=== PATIENT | female | born 1990 | race Caucasian/White ===

== ENCOUNTER 2017-03-15 16:27 | Emergency (ER) | payer OTHER ==
[~2017-03-15] VITALS: Ht 167.6 cm; Wt 74.4 kg
--- OUTSIDE RECORDS SUMMARY | 2017-03-15 16:36 | XMS REPORT | Continuity of Care Document ---
Author Author [employer] Organization [employer] Address Unknown Phone Unavailable Care Team Providers Care Shuttle Truck Driver Name Role Phone [employer] Unavailable Unavailable Problems Medications Allergies, Adverse Reactions, Alerts Immunizations Results Vital Signs Encounters Procedures Plan of Care Social History Assessment and Plan Family History Value Date Source Advance Directives Order Name Results Value Date Source
--- OUTSIDE RECORDS SUMMARY | 2017-03-15 16:36 | XMS REPORT ---
Author GEORGIA Malone Organization [employer] Address Unknown Phone Unavailable Care Team Providers Care Hangersmith Name Role Phone GEORGIA DOW CP Unavailable Allergies No Known Allergies Problems Problem Type Condition Code Onset Dates Condition Status Assessment Encounter for immunization Z23 Active Medications No Known Medications Procedures Procedure Coding System Code Date SINGLE IMMUNIZATION ADMIN CPT-4 78881 Jul 22, 2015 FLUARIX QUAD (3 & UP)-GSK-2014 CPT-4 53717 Jul 22, 2015 Results No Known Results Immunizations Vaccine Administration Date FLUARIX QUAD (3 & UP)-GSK-2014Jul 22, 2015 Summary Purpose [employer] Submission
--- OUTSIDE RECORDS SUMMARY | 2017-03-15 16:36 | XMS REPORT ---
Author Author GEORGIA DOW [facility] [employer] Address Unknown Phone Unavailable Care Team Providers Care Steel Manager Name Role Phone GEOR[place] DOW Unavailable Allergies No Known Allergies Problems Problem Type Condition Code Onset Dates Condition Status Assessment Encounter for immunization Z23 Active Medications No Known Medications Procedures Procedure Coding System Code Date SINGLE IMMUNIZATION ADMIN CPT-4 37448 Aug 02, 2016 FLUARIX QUAD P-FREE 3 AND UP .50 2015 CPT-4 80996 Aug 02, 2016 Results No Known Results Immunizations Vaccine Administration Date FLUARIX QUAD P-FREE 3 AND UP .50 2015Aug 02, 2016 Summary Purpose [employer] Submission
[2017-03-15] MEDS ORDERED: TETANUS,DIPTH,PERTUSS P/F (BOOSTRIX) 0.5 ML VIAL IM STA (16:57)
[2017-03-15] MEDS ORDERED: RABIES VACCINE HUMAN DIPL CELL 1 ML/2.5 UNITS SYR IM ONE (17:15)
[2017-03-15] MEDS ORDERED: RABIES IMMUNE GLOBULIN 150 UNIT/ML 10 ML (HYPERRAB) IM ONE (17:15)
--- NOTE | 2017-03-15 17:17 | ED Integumentary General ---
General Chief Complaint: Bite-Animal/Human/Insect Stated Complaint: DOG BITE ON LT LEG Source: patient Exam Limitations: no limitations (THOMAS ALVARADO MD) History of Present Illness Time seen by provider: 17:00 Initial Comments Here with report of dog bite to the area of the posterior leg just distal to the gluteal fold posteriorly. Does not believe that she has a puncture wound but definitely has scrapes to the area of concern. She has bruising also noted to the same area. The dog was dropped off at the person's house that she was at a couple weeks ago. The person at the household has not had problems with the dog since but today the dog bit the patient unprovoked. The dog then later tried to bite a senior c software engineer's Department officer who then shot at the dog. The dog then ran away and they're unable to find the dog. The dog is unknown on rabies vaccination and unknown on previous owners. Search of the area did not turn up the dog. Tetanus is not up-to-date. Timing/Duration: just prior to arrival (approximately 2 hours ago) Severity: moderate Location: extremities Possible Cause: other (dog bite) Associated Symptoms: change in skin texture, edema (THOMAS ALVARADO MD) Allergies and Home Medications Allergies Coded Allergies: No Known Drug Allergies (Unverified , 03/15/17) Home Medications Amoxicillin/Potassium Clav 1 Each Tablet, 1 EACH PO BID, #14 Ref 0 Prescribed by: ISAMAR AHUJA on 03/15/17 1723 Hydrocodone/Acetaminophen 1 Each Tablet, 1 EACH PO Q4H PRN for PAIN-MODERATE, # 20 Ref 0 Prescribed by: ISAMAR AHUJA on 03/15/17 1827 Constitutional: see HPI, No chills, No fever Respiratory: no symptoms reported Cardiovascular: no symptoms reported Gastrointestinal: no symptoms reported Musculoskeletal: see HPI, No joint pain, muscle pain Skin: see HPI, change in color, lesions Psychiatric/Neurological: No Symptoms Reported (THOMAS ALVARADO MD) Past Bcnrjpq-Fkvtxd-Xuyswv Hx Patient Social History Alcohol Use: Occasionally Uses Recreational Drug Use: No Smoking Status: Never a Smoker Recent Foreign Travel: No Contact w/Someone Who Travel: No (THOMAS ALVARADO MD) Surgeries HX Surgeries: No (THOMAS ALVARADO MD) Respiratory Hx Respiratory Disorders: No (THOMAS ALVARADO MD) Cardiovascular Hx Cardiac Disorders: No (THOMAS ALVARADO MD) Neurological Hx Neurological Disorders: No (THOMAS ALVARADO MD) Genitourinary Hx Genitourinary Disorders: No (THOMAS ALVARADO MD) Gastrointestinal Hx Gastrointestinal Disorders: No (THOMAS ALVARADO MD) Musculoskeletal Hx Musculoskeletal Disorders: No (THOMAS ALVARADO MD) Endocrine Hx Endocrine Disorders: No (THOMAS ALVARADO MD) HEENT HX ENT Disorders: No (THOMAS ALVARADO MD) Reviewed Nursing Assessment Reviewed/Agree w Nursing PMH: Yes (THOMAS ALVARADO MD) Family Medical History Significant Family History: No Pertinent Family Hx (THOMAS ALVARADO MD) Physical Exam Vital Signs Vital Sign - Last 12Hours 03/15/17 16:47 Temp 98.0 Pulse 86 Resp 18 B/P (MAP) 132/99 Pulse Ox 100 O2 Delivery Room Air (ISAMAR AHUJA) Vital Signs Capillary Refill : (THOMAS ALVARADO MD) General Appearance: WD/WN, no apparent distress Cardiovascular: regular rate, rhythm, no murmur Respiratory: lungs clear, normal breath sounds Gastrointestinal: non tender, soft Extremities: normal range of motion, swelling, other (2 x 10 cm area of bruising and induration to the posterior upper leg at the gluteal fold. 3 small abrasions on the opposite outside and of the bruising are noted consistent with area of dog bite.) Skin: warm/dry, ecchymosis (THOMAS ALVARADO MD) Progress/Results/Core Measures Results/Orders My Orders Orders - ISAMAR AHUJA Morphine Injection (Morphine Injection (03/15/17 18:17) (ISAMAR AHUJA) Medications Given in ED Current Medications Medications Dose Ordered Sig/Benita Route Start Time Stop Time Status Last Admin Dose Admin Rabies Vaccine Human Diploid Cell 1 ml ONCE ONCE IM 03/15/17 17:15 03/15/17 17:18 DC 03/15/17 17:15 1 ML (ISAMAR AHUJA) Vital Signs/I&O Vital Sign - Last 12Hours 03/15/17 03/15/17 16:47 19:01 Temp 98.0 98.0 Pulse 86 86 Resp 18 18 B/P (MAP) 132/99 Pulse Ox 100 100 O2 Delivery Room Air (ISAMAR AHUJA) Progress Note : Progress Note Seen and evaluated. Tetanus updated. Patient and family spoke with [facility]'s Department who is unable to find the dog. The person at the house where the dog was staying is unable to find the dog. Due to concerns of rabies and unable to monitor find the dog, rabies vaccine will be initiated. Patient will need vaccination series as well as rabies immune globulin at 20 units per kilogram culminating in a dose of approximately 1500 units injected. Injection and discharged by NOAM Henriquez. Patient did receive hydrocodone 7.5 one tab by mouth as well as ibuprofen 800 mg prior to injection procedure. (THOAMS ALVARADO MD) Departure Communication Progress Notes 10 ml rabies immune globulin injected IM surrounding the bite wound on the left posterior proximal thigh. bandages applied. blood loss minimal. patient tolerated the procedure well. [facility] for [facility] vaccine on , 03/21, and 03/28. (ISAMAR AHUJA) Impression Impression: Primary Impression: Dog bite Qualified Codes: W54.0XXA - Bitten by dog, initial encounter Disposition: HOME, SELF-CARE Condition: Improved Departure-Patient Inst. Decision time for Depature: 17:22 (ISAMAR AHUJA) Referrals: NO,LOCAL PHYSICIAN (PCP/Family) Primary Care Physician Patient Instructions: Animal Bites (DC), Rabies (DC) Add. Discharge Instructions: All discharge instructions reviewed with patient and/or family. Voiced understanding. Medications as instructed. Tylenol Extra Strength over-the- counter as directed for pain. Ibuprofen 800 mg by mouth every 8 hours as needed for pain. Shower with antibacterial soap. Apply triple antibiotic ointment twice daily for 3 days and cover with a bandage. Follow-up with your family practitioner for recheck if needed. Return to [facility] for rabies vaccination on Day 3 (03/17/17), Day 7 (03/21/17), and Day 14 (03/28/17) . Return to the emergency department for worsened pain, redness, fever, drainage, or any other concerns. Scripts Hydrocodone/Acetaminophen (Hydrocodon-Acetaminoph 7.5-325) 1 Each Tablet 1 EACH PO Q4H Y for PAIN-MODERATE, #20 TAB 0 Refills Prov: ISAMAR AHUJA 03/15/17 Amoxicillin/Potassium Clav (Augmentin 875-125 Tablet) 1 Each Tablet 1 EACH PO BID, #14 TAB 0 Refills Prov: ISAMAR AHUJA 03/15/17 THOMAS ALVARADO MD Mar 15, 2017 17:17 ISAMAR AHUJA Mar 15, 2017 17:24
[2017-03-15] MEDS ORDERED: AMOX-358 PO (17:23)
[2017-03-15] MEDS ORDERED: HYDROcodone/APAP 7.5 MG/325 MG (LORTAB, LORCET PLUS) TABLET PO STA (17:31)
[2017-03-15] MEDS ORDERED: IBUPROFEN 800 MG (MOTRIN) TAB PO STA (17:31)
[2017-03-15] MEDS ORDERED: morphine INJ 10 MG/ML 1ML (SYR OR VIAL) IM STA (18:17)
[2017-03-15] MEDS ORDERED: HYDR-3816 PO (18:27)
[2017-03-15 19:19] VITALS: BP 120/79
== END 2017-03-15 19:30 | disposition home or self-care (01) ==
LOC: ER 16:32
DX: S81.852A Open bite, left lower leg, initial encounter (principal); Z29.14 Encounter for prophylactic rabies immune globulin; W54.0XXA Bitten by dog, initial encounter; Y92.019 Unspecified place in single-family (private) house as the place of occurrence of the external cause
CPT/HCPCS: 84703; 90471; 90675; 90715; 96372; 99283

== ENCOUNTER 2017-03-28 10:25 | Outpatient (RCR) | payer OTHER ==
[2017-03-17 13:05] VITALS: BP 120/87
[2017-03-21 10:27] VITALS: BP 124/82
[~2017-03-28] VITALS: Ht 167.6 cm; Wt 74.4 kg
[~2017-03-28 10:25] MED LIST: AMOX-358 PO; HYDR-3816 PO; RABIES VACCINE HUMAN DIPL CELL 1 ML/2.5 UNITS SYR INJ ONE; RABIES VACCINE HUMAN DIPL CELL 1 ML/2.5 UNITS SYR ONE
[2017-03-28 10:34] VITALS: BP 118/76
== END 2017-06-15 | disposition home or self-care (01) ==
LOC: SDC 10:25
PROVIDERS: ATTEND Emergency Medicine
DX: Z23 Encounter for immunization (principal)
CPT/HCPCS: 90675; 96372

== ENCOUNTER → 2017-05-17 | Outpatient (CLI) | payer OTHER ==
[~2017-05-17] MED LIST changes: -RABIES VACCINE HUMAN DIPL CELL 1 ML/2.5 UNITS SYR INJ ONE; -RABIES VACCINE HUMAN DIPL CELL 1 ML/2.5 UNITS SYR ONE
--- NOTE | 2017-05-17 18:06 | Diagnostic Imaging Report ---
EXAMINATION: Pelvic ultrasound. INDICATION: Secondary oligomenorrhea. COMPARISON: There are no previous studies available for comparison. FINDINGS: The uterus is nongravid and not enlarged measuring 6.4 x 3.8 x 2.6 cm. The endometrial lining measures 7 mm (normal 5 mm or less). This finding is nonspecific, however. Correlation with the patient's menstrual cycle would be recommended. There is no focal mass involving the uterus to suggest a fibroid. Both ovaries were identified. There is blood flow to each ovary, and there is no sign of torsion. There are multiple follicles associated with each ovary. There is no solid pelvic mass or free fluid collection identified. IMPRESSION: 1. There is no evidence for an acute pelvic abnormality. 2. The endometrial lining is slightly thickened, but this finding is nonspecific. Dictated by: Dictated on workstation # [id number]
== END ==
LOC: RAD 09:37
PROVIDERS: ATTEND Obstetrics & Gynecology
DX: N91.4 Secondary oligomenorrhea (principal)
CPT/HCPCS: 76830; 76856

== ENCOUNTER 2017-09-24 11:43 | Emergency (ER) | payer OTHER ==
[~2017-09-24] VITALS: Ht 162.6 cm; Wt 74.8 kg
--- OUTSIDE RECORDS SUMMARY | 2017-09-24 11:48 | XMS REPORT | Continuity of Care Document ---
Author Author [employer] Organization [employer] Address Unknown Phone Unavailable Care Team Providers Care Litharge Mill Operator Name Role Phone [employer] Unavailable Unavailable Problems Medications Allergies, Adverse Reactions, Alerts Immunizations Results Vital Signs Encounters Procedures Plan of Care Social History Assessment and Plan Family History Advance Directives Functional Status
--- NOTE | 2017-09-24 11:57 | ED GU-Female ---
General Chief Complaint: -Female Stated Complaint: BLEEDING 12 WKS Source: patient Exam Limitations: no limitations History of Present Illness Time seen by provider: 11:56 Initial Comments To ER with reports of vaginal bleeding and being 12 weeks 3 days . . She follows with Dr. Cordero and has had an ultrasound for this . She denies any cramping sensation denies any fevers or chills. She does report some urinary frequency last night but she attributes this to drinking more water than usual yesterday. She states that the bleeding began last night as a small amount of blood in the toilet and on the toilet paper after urinating. Same thing occurred again this morning with a small clot on the toilet paper after urinating. Timing/Duration: constant Severity/Quality: moderate Radiation: none Activities at Onset: none Associated Symptoms: No dysuria, No lower back pain, No nausea/vomiting Allergies and Home Medications Allergies Coded Allergies: No Known Drug Allergies (Unverified , 03/15/17) Home Medications Amoxicillin/Potassium Clav 1 Each Tablet, 1 EACH PO BID, #14 Ref 0 Prescribed by: ISAMAR AHUJA on 03/15/17 1723 Hydrocodone/Acetaminophen 1 Each Tablet, 1 EACH PO Q4H PRN for PAIN-MODERATE, # 20 Ref 0 Prescribed by: ISAMAR AHUJA on 03/15/17 1827 Constitutional: see HPI EENTM: see HPI Respiratory: no symptoms reported Cardiovascular: no symptoms reported Genitourinary: no symptoms reported Musculoskeletal: see HPI Skin: no symptoms reported Psychiatric/Neurological: No Symptoms Reported Past Xfbovpo-Ygysqv-Bjmsri Hx Patient Social History Recent Foreign Travel: No Contact w/Someone Who Travel: No Recent Hopitalizations: No Immunizations Up To Date Tetanus Booster (TDap): Unknown Surgeries History of Surgeries: No Respiratory History of Respiratory Disorde: No Cardiovascular History of Cardiac Disorders: No Neurological History of Neurological Disord: No Genitourinary History of Genitourinary Disor: No Gastrointestinal History of Gastrointestinal Di: No Musculoskeletal History of Musculoskeletal Dis: No Endocrine History of Endocrine Disorders: No Integumentary History of Skin or Integumenta: No Family Medical History Significant Family History: No Pertinent Family Hx Physical Exam Vital Signs Vital Sign - Last 12Hours 09/24/17 11:55 Temp 98.0 Pulse 89 Resp 16 B/P (MAP) 135/84 (101) Pulse Ox 100 O2 Delivery Room Air Capillary Refill : General Appearance: WD/WN, no apparent distress HEENT: PERRL/EOMI, normal ENT inspection Neck: non-tender, full range of motion Respiratory: no respiratory distress, no accessory muscle use Gastrointestinal: non tender, soft Pelvic: other (pelvic exam done with Jennifer KOVACS at the bedside. No vaginal polyps or lacerations or bleeding lesions. cervix is closed. small amount of dark brown blood at the cervix, no active bleeding. ) Extremities: normal range of motion, non-tender Neurologic/Psychiatric: alert, normal mood/affect, oriented x 3 Skin: normal color, warm/dry Progress/Results/Core Measures Suspected Sepsis SIRS Temperature: Pulse: Respiratory Rate: Laboratory Tests 09/24/17 12:15: White Blood Count 8.1 Blood Pressure / Mean: Laboratory Tests 09/24/17 12:15: Platelet Count 229 Results/Orders Lab Results Laboratory Tests Test 09/24/17 12:10 09/24/17 12:15 Range/Units Urine Color YELLOW Urine Clarity CLEAR Urine pH 7 5-9 Urine Specific [place] 1.015 L 1.016-1.022 Urine Protein NEGATIVE NEGATIVE Urine Glucose (UA) NEGATIVE NEGATIVE Urine Ketones NEGATIVE NEGATIVE Urine Nitrite NEGATIVE NEGATIVE Urine Bilirubin NEGATIVE NEGATIVE Urine Urobilinogen NORMAL NORMAL MG/DL Urine Leukocyte Esterase NEGATIVE NEGATIVE Urine RBC (Auto) 4+ H NEGATIVE Urine RBC NONE /HPF Urine WBC NONE /HPF Urine Squamous Epithelial Cells 0-2 /HPF Urine Crystals NONE /LPF Urine Bacteria TRACE /HPF Urine Casts NONE /LPF Urine Mucus NEGATIVE /LPF Urine Culture Indicated NO White Blood Count 8.1 4.3-11.0 10^3/uL Red Blood Count 3.98 L 4.35-5.85 10^6/uL Hemoglobin 12.2 11.5-16.0 G/DL Hematocrit 35 35-52 % Mean Corpuscular Volume 88 80-99 FL Mean Corpuscular Hemoglobin 31 25-34 PG Mean Corpuscular Hemoglobin Concent 35 32-36 G/DL Red Cell Distribution Width 13.8 10.0-14.5 % Platelet Count 229 130-400 10^3/uL Mean Platelet Volume 9.6 7.4-10.4 FL Neutrophils (%) (Auto) 69 42-75 % Lymphocytes (%) (Auto) 24 12-44 % Monocytes (%) (Auto) 6 0-12 % Eosinophils (%) (Auto) 1 0-10 % Basophils (%) (Auto) 0 0-10 % Neutrophils # (Auto) 5.6 1.8-7.8 X 10^3 Lymphocytes # (Auto) 2.0 1.0-4.0 X 10^3 Monocytes # (Auto) 0.5 0.0-1.0 X 10^3 Eosinophils # (Auto) 0.1 0.0-0.3 10^3/uL Basophils # (Auto) 0.0 0.0-0.1 10^3/uL Human Chorionic Gonadotropin, Quant [id number] H <5 MIU/ML My Orders Orders - CARLOS A NELSON APRN Cbc With Automated Diff (09/24/17 11:46) Ua Culture If Indicated (09/24/17 11:46) Abo Rh Type (09/24/17 11:46) Urine Bedside (09/24/17 11:46) Hcg,Quantitative (09/24/17 12:02) Us Ob Single Fetus<14 [id number] (09/24/17 11:46) Vital Signs/I&O Vital Sign - Last 12Hours 09/24/17 11:55 Temp 98.0 Pulse 89 Resp 16 B/P (MAP) 135/84 (101) Pulse Ox 100 O2 Delivery Room Air Capillary Refill : Departure Impression Impression: Primary Impression: Vaginal bleeding affecting early Disposition: 01 HOME, SELF-CARE Condition: Stable Departure-Patient Inst. Decision time for Depature: 13:42 Referrals: LUIS DANIEL CORDERO DO (PCP/Family) Primary Care Physician Patient Instructions: NO INSTRUCTIONS GIVEN, Threatened Miscarriage Add. Discharge Instructions: 1. Call Dr Cordero to let her know of your symptoms. 2. Return to ER for any concerns 3. All discharge instructions reviewed with patient and/or family. Voiced understanding. Copy Copies To 1: LUIS DANIEL CORDERO PETER J APRN Sep 24, 2017 11:57
[2017-09-24 12:25] LABS: BILIRUBIN,URINE NEGATIVE (NEGATIVE); CLARITY,URINE CLEAR; COLOR,URINE YELLOW; GLUCOSE, URINE (UA) NEGATIVE (NEGATIVE); KETONES,URINE NEGATIVE (NEGATIVE); LEUKOCYTE ESTERASE ,URINE NEGATIVE (NEGATIVE); NITRITE,URINE NEGATIVE (NEGATIVE); PH,URINE 7 (5-9); PROTEIN,URINE NEGATIVE (NEGATIVE); UROBILINOGEN,URINE NORMAL (NORMAL)
[2017-09-24 12:28] LABS: BASOPHILS % (AUTO) 0 % (0-10); EOSINOPHILS # (AUTO) 0.1 10^3/uL (0.0-0.3); EOSINOPHILS % (AUTO) 1 % (0-10); HEMATOCRIT 35 % (35-52); HEMOGLOBIN 12.2 G/DL (11.5-16.0); LYMPHOCYTES % (AUTO) 24 % (12-44); MEAN CORPUSCULAR HEMOGLOBIN 31 PG (25-34); MEAN CORPUSCULAR HGB CONC 35 G/DL (32-36); MEAN CORPUSCULAR VOLUME 88 FL (80-99); MEAN PLATELET VOLUME 9.6 FL (7.4-10.4); MONOCYTES # (AUTO) 0.5 X 10^3 (0.0-1.0); MONOCYTES % (AUTO) 6 % (0-12); NEUTROPHILS # (AUTO) 5.6 X 10^3 (1.8-7.8); NEUTROPHILS % (AUTO) 69 % (42-75); PLATELET COUNT 229 10^3/uL (130-400); RED BLOOD COUNT 3.98 10^6/uL (4.35-5.85); RED CELL DISTRIBUTION WIDTH 13.8 % (10.0-14.5); WHITE BLOOD COUNT 8.1 10^3/uL (4.3-11.0)
[2017-09-24 12:47] LABS: BACTERIA,URINE TRACE /HPF
[2017-09-24 12:48] LABS: SQUAMOUS EPITHELIAL CELL,UR 0-2 /HPF
--- NOTE | 2017-09-24 13:29 | Diagnostic Imaging Report ---
PROCEDURE: US OB SINGLE FETUS <14 WKS. TECHNIQUE: Multiple real-time grayscale images were obtained over the gravid uterus in various projections. INDICATION: Bleeding. FINDINGS: There is a single living intrauterine in a variable presentation. The biometry correlates with gestational age of 12 weeks 4 days. Placenta is anterior. There is no previa. Heart rate is 169 beats per minute and regular. There is no evidence of subchorionic hemorrhage or abruption. Neither ovary was visualized. There are no adnexal masses. There is no free pelvic fluid. There appears to be a normal volume of amniotic fluid. IMPRESSION: Single living intrauterine with sonographically estimated gestational age of 12 weeks 4 days and estimated date of confinement of 04/04/2018 No evidence of subchorionic hemorrhage or abruption. Dictated by: Dictated on workstation # [id number]
[2017-09-24 14:19] VITALS: BP 135/84
== END 2017-09-24 13:59 | disposition home or self-care (01) ==
LOC: EDUNIT# 11:43 → ER 11:44
DX: O20.9 Hemorrhage in early pregnancy, unspecified (principal); Z3A.12 12 weeks gestation of pregnancy
CPT/HCPCS: 36415; 76801; 81000; 84702; 84703; 85025; 86900; 86901; 87070; 99282

== ENCOUNTER → 2017-11-17 | Outpatient (CLI) | payer OTHER ==
[~2017-11-17] MED LIST changes: +HYDR-34 PO; -HYDR-3816 PO
--- NOTE | 2017-11-17 13:48 | Diagnostic Imaging Report ---
INDICATION: survey. TECHNIQUE: Multiple Real-time grayscale images were obtained over the gravid uterus. COMPARISON: 09/24/2017. FINDINGS: There is a single living intrauterine in cephalic presentation. The placenta is anterior. The placenta is 2.6 cm from the cervix at this time. There is a normal volume of amniotic fluid. The anatomical survey is unremarkable apart from limited visualization of the spine. The biometry correlates with a gestational age of 21 weeks 1 day. The heart rate is 152 BPM and regular. IMPRESSION: Single living intrauterine with a sonographically estimated gestational age of 21 weeks 1 day and an estimated date of confinement of March 29, 2018. Limited visualization of the spine; otherwise, unremarkable survey. The placenta is 2.6 cm from the internal os at this time. Biometrical measurements are as follows: Biparietal 4.85 cm, age 20 weeks 5 days. Head circumference 18.77 cm, age 21 weeks 1 days. Abdominal circumference 15.53 cm, age 20 weeks 5 days. Femur length 3.71 cm, age 21 weeks 6 days. Sonographic estimate age: 21 weeks 1 days. Sonographic estimated date of delivery: 03-29-18. Estimated Weight: 405 gm (+/- 59 gm). LMP percentile: 96%. heart rate: 152 beats per minute. number: 1 of 1. Dictated by: Dictated on workstation # [id number]
== END ==
LOC: RAD 11:50
PROVIDERS: ATTEND Obstetrics & Gynecology
DX: Z36.89 Encounter for other specified antenatal screening (principal); Z3A.21 21 weeks gestation of pregnancy
CPT/HCPCS: 76805

== ENCOUNTER → 2018-01-02 | Outpatient (CLI) | payer OTHER ==
[~2018-01-02] MED LIST changes: +ACHD5005 PO; +Benzocaine/Menthol TP; +DOCU100C37 PO; +FERR240T9 PO; +FERR325T18 PO; +IBUP-844 PO; +PREN-142 PO
--- NOTE | 2018-01-02 14:49 | Diagnostic Imaging Report ---
INDICATION: Followup placenta and spine. TECHNIQUE: Multiple real-time grayscale images were obtained over the gravid uterus. COMPARISON: 11/17/2017. FINDINGS: There is a single live fetus in a cephalic presentation. The placenta is anterior. The placenta is no longer low lying in position. The amniotic fluid volume is normal. spine is within normal limits. heart rate was recorded at 134 beats per minute. IMPRESSION: Limited OB ultrasound demonstrating normal-appearing spine. The placenta is anterior and no longer low lying. Dictated by: Dictated on workstation # [id number]
== END ==
LOC: RAD 14:22
PROVIDERS: ATTEND Obstetrics & Gynecology
DX: O44.42 Low lying placenta NOS or without hemorrhage, second trimester (principal); Z3A.00 Weeks of gestation of pregnancy not specified
CPT/HCPCS: 76816

== ENCOUNTER → 2018-02-16 | Outpatient (CLI) | payer OTHER ==
[~2018-02-16] MED LIST changes: -ACHD5005 PO; -Benzocaine/Menthol TP; -DOCU100C37 PO; -FERR240T9 PO; -FERR325T18 PO; -IBUP-844 PO; -PREN-142 PO
--- NOTE | 2018-02-16 12:39 | Diagnostic Imaging Report ---
INDICATION: Gestational diabetes. Study is performed to evaluate amniotic fluid index and growth as well as biophysical profile. TECHNIQUE: Multiple real-time grayscale images were obtained over the gravid uterus. COMPARISON: 01/02/2018. FINDINGS: There is a single live fetus in cephalic presentation. The placenta is anterior. The amniotic fluid volume is normal with amniotic fluid index of 18 cm. heart rate was recorded at 138 beats per minute. Biophysical profile was performed. There is a normal score of 8 out of 8. Biometrical measurements are as follows: Biparietal 8.90 cm, age 36 weeks 1 days. Head circumference 32.89 cm, age 37 weeks 3 days. Abdominal circumference 29.95 cm, age 34 weeks 0 days. Femur length 6.82 cm, age 35 weeks 1 days. Sonographic estimate age: 35 weeks 5 days. Sonographic estimated date of delivery: 03/18/18. Estimated Weight: 2517 gm (+/- 367 gm). LMP percentile: 90%. heart rate: 138 beats per minute. number: 1 of 1. IMPRESSION: Single live IUP approximately 35 to 36 weeks gestational age (plus or -3 weeks) CTs. No complicating features are identified. Dictated by: Dictated on workstation # [id number]
== END ==
LOC: RAD 09:57
PROVIDERS: ATTEND Obstetrics & Gynecology
DX: O24.410 Gestational diabetes mellitus in pregnancy, diet controlled (principal); Z3A.35 35 weeks gestation of pregnancy
CPT/HCPCS: 76805; 76819

== ENCOUNTER → 2018-03-01 | Outpatient (CLI) | payer OTHER ==
--- NOTE | 2018-03-02 09:34 | Diagnostic Imaging Report ---
INDICATION: Gestational diabetes. TECHNIQUE: Multiple real-time grayscale images were obtained over the gravid uterus. COMPARISON: 02/16/2018. FINDINGS: There is a single live fetus in a cephalic presentation. The placenta is anterior. The amniotic fluid index is 15.8 cm. heart rate was recorded at 139 beats per minute. Biophysical profile was performed. Score is normal at 8/8. Biometrical measurements are as follows: Biparietal 9.31 cm, age 38 weeks 0 days. Head circumference 33.72 cm, age 38 weeks 5 days. Abdominal circumference 32.61 cm, age 36 weeks 4 days. Femur length 7.08 cm, age 36 weeks 3 days. Sonographic estimate age: 37 weeks 3 days. Sonographic estimated date of delivery: 03/19/18. Estimated Weight: 3048 gm (+/- 445 gm). LMP percentile: 93%. heart rate: 139 beats per minute. number: 1 of 1. IMPRESSION: Single live IUP measuring approximately 37 weeks 3 days gestational age which is approximately 2-3 weeks large when compared with ultrasound from 01/02/2018. Biophysical profile score is normal at 8/8. Dictated by: Dictated on workstation # [id number]
== END ==
LOC: RAD 11:54
PROVIDERS: ATTEND Obstetrics & Gynecology
DX: Z53.8 Procedure and treatment not carried out for other reasons (principal); O24.410 Gestational diabetes mellitus in pregnancy, diet controlled; Z3A.00 Weeks of gestation of pregnancy not specified
CPT/HCPCS: 76805; 76819

== ENCOUNTER 2018-03-13 10:30 | Inpatient (IN) | payer OTHER ==
[~2018-03-13] VITALS: Ht 162.6 cm; Wt 74.9 kg
[2018-03-13 10:20] VITALS: BP 130/87
[2018-03-13] MEDS ORDERED: NS IV 1000 ML 1,000 ML IV SCH (13:30)
--- NOTE | 2018-03-13 14:20 | Progress Note-Standard ---
LUIS DANIEL CORDERO DO Mar 13, 2018 14:19
[2018-03-13 14:30] VITALS: BP 140/88
[2018-03-13] MEDS: LACTATED RINGERS 1,000 ML IV SCH (15:58)
[2018-03-13 16:05] LABS: BASOPHILS % (AUTO) 0 % (0-10); EOSINOPHILS % (AUTO) 1 % (0-10); HEMATOCRIT 35 % (35-52); HEMOGLOBIN 12.4 G/DL (11.5-16.0); LYMPHOCYTES % (AUTO) 23 % (12-44); MEAN CORPUSCULAR HEMOGLOBIN 32 PG (25-34); MEAN CORPUSCULAR HGB CONC 35 G/DL (32-36); MEAN CORPUSCULAR VOLUME 91 FL (80-99); MEAN PLATELET VOLUME 10.8 FL (7.4-10.4); MONOCYTES % (AUTO) 6 % (0-12); NEUTROPHILS % (AUTO) 70 % (42-75); PLATELET COUNT 176 10^3/uL (130-400); RED BLOOD COUNT 3.91 10^6/uL (4.35-5.85); RED CELL DISTRIBUTION WIDTH 16.6 % (10.0-14.5); WHITE BLOOD COUNT 7.2 10^3/uL (4.3-11.0)
[2018-03-13 16:06] LABS: LYMPHOCYTES # (AUTO) 1.7 X 10^3 (1.0-4.0); MONOCYTES # (AUTO) 0.4 X 10^3 (0.0-1.0)
[2018-03-13 16:28] LABS: ALANINE AMINOTRANSFERASE 12 U/L (0-55); ALBUMIN 3.6 GM/DL (3.2-4.5); ALKALINE PHOSPHATASE 152 U/L (40-136); BILIRUBIN,TOTAL 0.5 MG/DL (0.1-1.0); BUN/CREATININE RATIO 11; CARBON DIOXIDE 18 MMOL/L (21-32); CHLORIDE 112 MMOL/L (98-107); CREATININE SERUM 0.64 MG/DL (0.60-1.30); GFR ESTIMATED > 60; GLUCOSE 71 MG/DL (70-105); POTASSIUM 3.7 MMOL/L (3.6-5.0); SODIUM 142 MMOL/L (135-145); TOTAL PROTEIN 6.7 GM/DL (6.4-8.2); URIC ACID 5.9 MG/DL (2.6-7.2)
[2018-03-13 16:47] LABS: URINE CREATININE FOR RATIO 10 MG/DL (30-125); URINE PROTEIN FOR RATIO ONLY < 6 MG/DL (6-12)
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
[2018-03-13] MEDS ORDERED: AMPICILLIN INJECTION 2,000 MG in NS (IVPB) 50 ML IV SCH (17:22)
[2018-03-13] MEDS ORDERED: ZOLPIDEM 5 MG (AMBIEN) TAB PO PRN (17:30)
[2018-03-13] MEDS ORDERED: morphine INJ 10 MG/ML 1ML (SYR OR VIAL) IVP PRN (17:30)
[2018-03-13] MEDS ORDERED: MINERAL OIL CONCENTRATE 99.9% 15 ML UDC TOP PRN (17:30)
[2018-03-13] MEDS ORDERED: BETAMETHASONE ACE/NA PHOS 6 MG/ML (CELESTONE SOLUSPAN) IM SCH (18:30)
[2018-03-13 18:40] VITALS: BP 118/65
[2018-03-13 21:00] VITALS: BP 120/69
[2018-03-13] MEDS ORDERED: PREN-142 PO (22:17)
[2018-03-13] MEDS ORDERED: FERR240T9 PO (22:18)
[2018-03-13] MEDS: AMPICILLIN INJECTION 1,000 MG in NS (IVPB) 50 ML IV SCH (22:43)
[2018-03-14] VITALS (49 sets, daily range): BP systolic 103–180; BP diastolic 53–90
[2018-03-14] MEDS: LACTATED RINGERS 1,000 ML IV SCH ×2 (01:13→09:45)
[2018-03-14] MEDS: AMPICILLIN INJECTION 1,000 MG in NS (IVPB) 50 ML IV SCH ×4 (02:44→15:12)
[2018-03-14] MEDS ORDERED: SUFENTA 0.6MCG/ML BUPIVA 0.125 100 ML ONE (09:26)
[2018-03-14] MEDS ORDERED: BUTORPHANOL INJ 2 MG/ML (STADOL) VIAL IV PRN (09:45)
[2018-03-14] MEDS ORDERED: fentaNYL INJECTION 100 MCG/2 ML AMP ONE (09:53)
[2018-03-14] MEDS ORDERED: LACTATED RINGERS 1,000 ML IV ONE (10:27)
[2018-03-14] MEDS ORDERED: ONDANSETRON 4 MG/2 ML (SDV) Z0FRAN IV PRN (10:30)
[2018-03-14] MEDS ORDERED: NALOXONE 0.4 MG/ML 1 ML (NARCAN) VIAL IV PRN ×2 (10:30)
[2018-03-14] MEDS ORDERED: diphenhydrAMINE 50 MG/ML INJ (BENADRYL) IV PRN (10:30)
[2018-03-14] MEDS ORDERED: EPIDURAL (SUFENTA 0.6MCG/ML BUPIVA 0.125%) 100 ML BAG EPI PRN (10:30)
[2018-03-14] MEDS ORDERED: METOCLOPRAMIDE INJ 10 MG/2 ML (REGLAN) IV PRN (10:30)
[2018-03-14] MEDS ORDERED: OXYTOCIN/NORMAL SALINE 500 ML IV SCH ×2 (11:08→17:59)
[2018-03-14] MEDS ORDERED: OXYTOCIN/NORMAL SALINE 500 ML IV ONE (11:10)
[2018-03-14] MEDS ORDERED: LIDOCAINE/EPI 2% 1:200,00 (XYLOCAINE) 10 ML VIAL ONE ×2 (17:21→17:44)
[2018-03-14] MEDS ORDERED: BENZOCAINE/MENTHOL (DERMOPLAST) 56 ML CAN TP ONE (17:55)
[2018-03-14] MEDS ORDERED: MEASLES,MUMPS,RUBELLA 1 EA INJ SQ ONE (18:00)
[2018-03-14] MEDS ORDERED: HYDROcodone/APAP 5 MG/325 MG (LORTAB) TAB PO PRN (18:00)
[2018-03-14] MEDS ORDERED: DIBUCAINE (NUPERCAINAL) 1% OINT 30 GM TOP PRN (18:00)
[2018-03-14] MEDS ORDERED: TETANUS,DIPTH,PERTUSS P/F (BOOSTRIX) 0.5 ML VIAL IM ONE (18:00)
[2018-03-14] MEDS ORDERED: BENZOCAINE/MENTHOL (DERMOPLAST) 56 ML CAN TP PRN (18:00)
--- NOTE | 2018-03-14 18:08 | Progress Note-Standard ---
Standard Progress Note Progress Notes/Assess & Plan Date Seen by Provider: Mar 13, 2018 Time Seen by Provider: 11:15 LUIS DANIEL CORDERO DO Mar 14, 2018 18:07
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
[2018-03-14] MEDS: WITCH HAZEL(TUCKS) 40 EA JAR TOP PRN (20:50)
[2018-03-14] MEDS: IBUPROFEN 600 MG (MOTRIN) TAB PO SCH (20:51)
[2018-03-14] MEDS: DOCUSATE SODIUM 100 MG (COLACE) CAP PO SCH (20:51)
[2018-03-15 00:09] VITALS: BP 116/70
[2018-03-15] MEDS: CATHETER FLUSH 10 ML SYR IV SCH ×2 (00:18→06:22)
[2018-03-15 03:30] VITALS: BP 97/54
[2018-03-15] MEDS: IBUPROFEN 600 MG (MOTRIN) TAB PO SCH ×2 (03:30→09:16)
[2018-03-15] MEDS ORDERED: PRENATAL VITAMIN 1 EA TAB PO SCH (07:00)
[2018-03-15] MEDS ORDERED: FERROUS SULF 325 MG (IRON) TAB PO SCH (07:00)
[2018-03-15 07:16] LABS: BASOPHILS % (AUTO) 0 % (0-10); EOSINOPHILS % (AUTO) 0 % (0-10); HEMATOCRIT 29 % (35-52); HEMOGLOBIN 9.8 G/DL (11.5-16.0); LYMPHOCYTES # (AUTO) 1.8 X 10^3 (1.0-4.0); LYMPHOCYTES % (AUTO) 17 % (12-44); MEAN CORPUSCULAR HEMOGLOBIN 32 PG (25-34); MEAN CORPUSCULAR HGB CONC 34 G/DL (32-36); MEAN CORPUSCULAR VOLUME 93 FL (80-99); MEAN PLATELET VOLUME 10.8 FL (7.4-10.4); MONOCYTES # (AUTO) 0.7 X 10^3 (0.0-1.0); MONOCYTES % (AUTO) 6 % (0-12); NEUTROPHILS # (AUTO) 7.9 X 10^3 (1.8-7.8); NEUTROPHILS % (AUTO) 77 % (42-75); PLATELET COUNT 155 10^3/uL (130-400); RED BLOOD COUNT 3.08 10^6/uL (4.35-5.85); RED CELL DISTRIBUTION WIDTH 16.5 % (10.0-14.5); WHITE BLOOD COUNT 10.3 10^3/uL (4.3-11.0)
--- NOTE | 2018-03-15 07:33 | Discharge Inst-Women's Service ---
Discharge Inst-Women's Serv Depart Medication/Instructions New, Converted or Re-Newed RX: RX on Chart Consults/Follow Up Additional Follow Up: Yes Orders/Referrals Dr. Lindsey in 6 weeks Activity Activity: Activity as Tolerated Driving Instructions: No Driving for 1 Week NO SMOKING: NO SMOKING Nothing Inside Vagina: No Douching, No [place], No Tampons Diet Discharge Diet: No Restrictions Symptoms to Report to : Bleeding Excessive, Pain Increased, Fever Over 101 Degrees F, Vaginal Bleeding Increase, Questions/Concerns For Any Problems or Questions: Contact Your Physician Skin/Wound Care Bathing Instructions: Shower (or sitz baths x 2 weeks) RACHEL BRANDON DO Mar 15, 2018 07:32
[2018-03-15] MEDS ORDERED: ACHD5005 PO (07:34)
[2018-03-15] MEDS ORDERED: FERR325T18 PO (07:34)
[2018-03-15] MEDS ORDERED: DOCU100C37 PO (07:34)
[2018-03-15] MEDS ORDERED: Benzocaine/Menthol TP (07:34)
[2018-03-15] MEDS ORDERED: IBUP-844 PO (07:34)
--- NOTE | 2018-03-15 07:35 | Postpartum Progress Note ---
Note Note Day # 1 Subjective: Patient is without complaints. Ambulating, voiding. Tolerating a regular diet without nausea or vomiting. Normal lochia. Pain is well controlled with oral pain medications. being transferred to NICU Objective: Vital Sign - Last 24 Hours 03/14/18 03/14/18 03/14/18 03/14/18 08:15 09:20 09:40 09:45 Temp 97.5 Pulse 82 88 114 100 Resp 18 18 18 18 B/P (MAP) 126/61 (82) 118/68 (85) 133/73 (93) 129/72 (91) Pulse Ox 99 98 O2 Delivery Room Air Room Air Room Air Room Air 03/14/18 03/14/18 03/14/18 03/14/18 09:50 09:55 10:00 10:05 Pulse 100 100 100 102 Resp 18 18 18 18 B/P (MAP) 132/75 (94) 130/72 (91) 125/66 (85) 125/68 (87) Pulse Ox 100 100 100 100 O2 Delivery Room Air Room Air Room Air Room Air 03/14/18 03/14/18 03/14/18 03/14/18 10:10 10:20 10:30 10:45 Pulse 96 95 100 87 Resp 18 18 18 18 B/P (MAP) 119/60 (79) 120/80 (93) 125/66 (85) 103/66 (78) Pulse Ox 98 98 100 99 O2 Delivery Room Air Room Air Room Air Room Air 03/14/18 03/14/18 03/14/18 03/14/18 11:00 11:15 11:45 12:00 Pulse 92 84 75 80 Resp 18 18 18 18 B/P (MAP) 103/75 (84) 109/69 (82) 110/69 (83) 110/70 (83) Pulse Ox 100 100 100 100 O2 Delivery Room Air Room Air Room Air Room Air 03/14/18 03/14/18 03/14/18 03/14/18 12:15 12:30 12:45 13:00 Pulse 80 82 84 84 Resp 18 18 18 18 B/P (MAP) 112/73 (86) 118/74 (89) 131/76 (94) 121/71 (88) Pulse Ox 100 100 100 100 O2 Delivery Room Air Room Air Room Air Room Air 03/14/18 03/14/18 03/14/18 03/14/18 13:15 13:30 13:45 14:00 Pulse 81 85 76 78 Resp 18 18 18 18 B/P (MAP) 125/70 (88) 132/75 (94) 123/69 (87) 121/66 (84) Pulse Ox 100 99 98 97 O2 Delivery Room Air Room Air Room Air Room Air 03/14/18 03/14/18 03/14/18 03/14/18 14:15 14:30 14:45 15:00 Temp 98.2 Pulse 84 81 82 83 Resp 18 18 18 18 B/P (MAP) 127/67 (87) 121/67 (85) 123/66 (85) 135/67 (89) Pulse Ox 97 99 100 100 O2 Delivery Room Air Room Air Room Air Room Air 03/14/18 03/14/18 03/14/18 03/14/18 15:15 15:30 15:45 16:00 Pulse 88 82 89 89 Resp 18 18 B/P (MAP) 136/72 (93) 125/66 (85) 118/59 (78) 126/64 (84) Pulse Ox 100 98 97 99 O2 Delivery Room Air Room Air Room Air Room Air 03/14/18 03/14/18 03/14/18 03/14/18 16:15 16:30 16:45 17:00 Pulse 87 90 86 103 Resp 18 18 18 18 B/P (MAP) 128/65 (86) 128/71 (90) 138/68 (91) 140/66 (90) Pulse Ox 99 100 100 100 O2 Delivery Room Air Room Air Room Air Room Air 03/14/18 03/14/18 03/14/18 03/14/18 17:15 17:30 17:45 18:00 Temp 98.8 Pulse 131 107 107 112 Resp 18 20 20 18 B/P (MAP) 180/90 (120) 125/60 (81) 110/53 (72) 121/58 (79) O2 Delivery Room Air Room Air Room Air Room Air 03/14/18 03/14/18 03/14/18 03/14/18 18:15 18:30 18:45 19:00 Pulse 106 101 101 102 Resp 18 18 18 18 B/P (MAP) 124/58 (80) 126/65 (85) 126/61 (82) 126/61 (82) O2 Delivery Room Air Room Air Room Air Room Air 03/14/18 03/14/18 03/14/18 03/14/18 19:18 19:33 19:48 20:30 Temp 98.1 98.4 Pulse 134 110 104 102 Resp 18 18 18 18 B/P (MAP) 143/65 (91) 141/62 (88) 138/64 (88) 122/71 (88) Pulse Ox 98 O2 Delivery Room Air Room Air Room Air Room Air 03/15/18 03/15/18 00:09 03:30 Temp 97.8 97.6 Pulse 104 85 Resp 18 18 B/P (MAP) 116/70 (85) 97/54 (68) Pulse Ox 98 O2 Delivery Room Air Room Air Physical Exam: General - Alert and oriented, no apparent distress Abdomen - Soft, appropriately tender to palpation, non-distended, fundus firm at umbilicus Extremities - no edema, negative Gloria's bilaterally Assessment: PPD 1 NVD Acute blood loss anemia Plan: Routine care. Encourage breast feeding. Encourage ambulation. Ferrous sulfate supplementation. Plan for discharge [today with infant Vitals - Labs Vital Signs - I&O Vital Signs Date Time Temp Pulse Resp B/P (MAP) Pulse Ox O2 Delivery O2 Flow Rate FiO2 03/15/18 03:30 97.6 85 18 97/54 (68) 98 Room Air 03/15/18 00:09 97.8 104 18 116/70 (85) Room Air 03/14/18 20:30 98.4 102 18 122/71 (88) 98 Room Air 03/14/18 19:48 98.1 104 18 138/64 (88) Room Air 03/14/18 19:33 110 18 141/62 (88) Room Air 03/14/18 19:18 134 18 143/65 (91) Room Air 03/14/18 19:00 102 18 126/61 (82) Room Air 03/14/18 18:45 101 18 126/61 (82) Room Air 03/14/18 18:30 101 18 126/65 (85) Room Air 03/14/18 18:15 106 18 124/58 (80) Room Air 03/14/18 18:00 112 18 121/58 (79) Room Air 03/14/18 17:45 107 20 110/53 (72) Room Air 03/14/18 17:30 98.8 107 20 125/60 (81) Room Air 03/14/18 17:15 131 18 180/90 (120) Room Air 03/14/18 17:00 103 18 140/66 (90) 100 Room Air 03/14/18 16:45 86 18 138/68 (91) 100 Room Air 03/14/18 16:30 90 18 128/71 (90) 100 Room Air 03/14/18 16:15 87 18 128/65 (86) 99 Room Air 03/14/18 16:00 89 18 126/64 (84) 99 Room Air 03/14/18 15:45 89 18 118/59 (78) 97 Room Air 03/14/18 15:30 82 18 125/66 (85) 98 Room Air 03/14/18 15:15 88 18 136/72 (93) 100 Room Air 03/14/18 15:00 83 18 135/67 (89) 100 Room Air 03/14/18 14:45 98.2 82 18 123/66 (85) 100 Room Air 03/14/18 14:30 81 18 121/67 (85) 99 Room Air 03/14/18 14:15 84 18 127/67 (87) 97 Room Air 03/14/18 14:00 78 18 121/66 (84) 97 Room Air 03/14/18 13:45 76 18 123/69 (87) 98 Room Air 03/14/18 13:30 85 18 132/75 (94) 99 Room Air 03/14/18 13:15 81 18 125/70 (88) 100 Room Air 03/14/18 13:00 84 18 121/71 (88) 100 Room Air 03/14/18 12:45 84 18 131/76 (94) 100 Room Air 03/14/18 12:30 82 18 118/74 (89) 100 Room Air 03/14/18 12:15 80 18 112/73 (86) 100 Room Air 03/14/18 12:00 80 18 110/70 (83) 100 Room Air 03/14/18 11:45 75 18 110/69 (83) 100 Room Air 03/14/18 11:15 84 18 109/69 (82) 100 Room Air 03/14/18 11:00 92 18 103/75 (84) 100 Room Air 03/14/18 10:45 87 18 103/66 (78) 99 Room Air 03/14/18 10:30 100 18 125/66 (85) 100 Room Air 03/14/18 10:20 95 18 120/80 (93) 98 Room Air 03/14/18 10:10 96 18 119/60 (79) 98 Room Air 03/14/18 10:05 102 18 125/68 (87) 100 Room Air 03/14/18 10:00 100 18 125/66 (85) 100 Room Air 03/14/18 09:55 100 18 130/72 (91) 100 Room Air 03/14/18 09:50 100 18 132/75 (94) 100 Room Air 03/14/18 09:45 100 18 129/72 (91) 98 Room Air 03/14/18 09:40 114 18 133/73 (93) 99 Room Air 03/14/18 09:20 88 18 118/68 (85) Room Air 03/14/18 08:15 97.5 82 18 126/61 (82) Room Air Labs Laboratory Tests 03/15/18 05:57: Glucometer 97 03/15/18 06:52: White Blood Count 10.3, Red Blood Count 3.08L, Hemoglobin 9.8#L, Hematocrit 29L , Mean Corpuscular Volume 93, Mean Corpuscular Hemoglobin 32, Mean Corpuscular Hemoglobin Concent 34, Red Cell Distribution Width 16.5H, Platelet Count 155, Mean Platelet Volume 10.8H, Neutrophils (%) (Auto) 77H, Lymphocytes (%) (Auto) 17, Monocytes (%) (Auto) 6, Eosinophils (%) (Auto) 0, Basophils (%) (Auto) 0, Neutrophils # (Auto) 7.9H, Lymphocytes # (Auto) 1.8, Monocytes # (Auto) 0.7, Eosinophils # (Auto) 0.0, Basophils # (Auto) 0.0 Microbiology 03/13/18 Group B Streptococcus Culture - Preliminary, Resulted See Comments RACHEL BRANDON DO Mar 15, 2018 07:35
[2018-03-15 08:00] VITALS: BP 109/66
--- NOTE | 2018-03-15 08:06 | Anesthesia-Regional Post-Op ---
Regional Patient Condition Mental Status: Alert, Oriented x3 Circulation: Same as Pre-Op Headache: Absent Sensation: Full Recovery Motor Block: Absent Post Op Complications Complications None Follow Up Care/Instructions Patient Instructions None needed. Anesthesia/Patient Condition Patient is doing well, no complaints, stable vital signs, no apparent adverse anesthesia problems. No complications reported per nursing. ANISA SALINAS CRNA Mar 15, 2018 08:06
[2018-03-15] MEDS: DOCUSATE SODIUM 100 MG (COLACE) CAP PO SCH (08:10)
[2018-03-15] MEDS: WITCH HAZEL(TUCKS) 40 EA JAR TOP PRN (09:22)
== END 2018-03-15 09:55 | disposition home or self-care (01) | DRG 775 ==
LOC: WSo 10:30 → LDRP 10:31 → WSo 18:29 → LDRP 18:42
PROVIDERS: ADMIT Obstetrics & Gynecology; ATTEND Obstetrics & Gynecology
PROC: 0KQM0ZZ Repair Perineum Muscle, Open Approach (ICD-10-PCS; principal; 2018-03-14)
PROC: 10E0XZZ Delivery of Products of Conception, External Approach (ICD-10-PCS; principal; 2018-03-14)
DX: O60.14X0 Preterm labor third trimester with preterm delivery third trimester, not applicable or unspecified (principal); O90.81 Anemia of the puerperium; D62 Acute posthemorrhagic anemia; O70.1 Second degree perineal laceration during delivery; O24.429 Gestational diabetes mellitus in childbirth, unspecified control; Z3A.36 36 weeks gestation of pregnancy; Z04.1 Encounter for examination and observation following transport accident; Z37.0 Single live birth; V40.6XXA Car passenger injured in collision with pedestrian or animal in traffic accident, initial encounter
CPT/HCPCS: 36415; 80053; 82570; 82962; 83615; 84156; 84550; 85025; 86850; 86900; 86901; 87081; 99212

== ENCOUNTER → 2020-03-05 | Outpatient (CLI) | payer OTHER ==
[~2020-03-05] MED LIST changes: +ACHD5005 PO; +Benzocaine/Menthol TP; +DOCU100C37 PO; +FERR240T15 PO; +FERR325T18 PO; +IBUP-844 PO; +PREN-142 PO
--- NOTE | 2020-03-05 13:29 | Diagnostic Imaging Report ---
INDICATION: survey. TECHNIQUE: Multiple real-time grayscale images were obtained over the gravid uterus. COMPARISON: None. FINDINGS: There is a single live fetus in transverse presentation, head to maternal right. heart rate was recorded 150 bpm. Placenta is posterior. There does appear to be a complete placenta previa at this time. Amniotic fluid index is 13.5 cm. Cervical length is approximately 7.9 cm. kidneys, bladder and stomach are unremarkable. brain is unremarkable. There is a four-chambered heart. There is a three-vessel cord with normal insertion. spine is unremarkable. Biometrical measurements are as follows: Biparietal 4.63 cm, age 20 weeks 0 days. Head circumference 17.50 cm, age 20 weeks 1 days. Abdominal circumference 15.46 cm, age 20 weeks 5 days. Femur length 3.50 cm, age 21 weeks 1 days. Sonographic estimate age: 20 weeks 4 days. Sonographic estimated date of delivery: 07/19/2020. Estimated Weight: 372 gm (+/- 54 gm). LMP percentile: 84%. heart rate: 150 beats per minute. number: 1 of 1. IMPRESSION: Single live IUP 20 weeks 4 days gestational age. Estimated date of confinement sonographically is 07/19/2020. survey is unremarkable. Note is made of a complete placenta previa at this time. Dictated by: Dictated on workstation # [id number]
== END ==
LOC: RAD 11:33
PROVIDERS: ATTEND Obstetrics & Gynecology
DX: O44.02 Complete placenta previa NOS or without hemorrhage, second trimester (principal); Z3A.20 20 weeks gestation of pregnancy
CPT/HCPCS: 76805

== ENCOUNTER → 2020-04-08 | Outpatient (CLI) | payer OTHER ==
--- NOTE | 2020-04-08 14:05 | Diagnostic Imaging Report ---
INDICATION: Placenta previa, followup. TECHNIQUE: Multiple real-time grayscale images were obtained over the gravid uterus. COMPARISON: 03/05/2020. FINDINGS: There is a single live fetus in a transverse presentation. heart rate was recorded 142 bpm. Placenta is posterior. Placenta is no longer in a previa position. The tip of the placenta is approximately 3.1 cm from the internal cervical os. Amniotic fluid volume is normal. IMPRESSION: No evidence of placenta previa. Dictated by: Dictated on workstation # [id number]
== END ==
LOC: RAD 11:41
PROVIDERS: ATTEND Obstetrics & Gynecology
DX: O44.02 Complete placenta previa NOS or without hemorrhage, second trimester (principal)
CPT/HCPCS: 76816

== ENCOUNTER 2020-07-19 14:42 | Inpatient (IN) | payer OTHER ==
[2020-07-19] VITALS (40 sets, daily range): BP systolic 115–142; BP diastolic 55–100
[~2020-07-19] VITALS: Ht 162 cm; Wt 92.4 kg
--- NOTE | 2020-07-19 14:48 | NUR ---
MARTY WRAY presented to unit via amb from ED, accompanied by spouse, with c/o leaking fluid and possible LABOR. MARTY WRAY weighed, gowned, voided, and to bed. EFHM and TOCO applied, VS taken. MARTY WRAY oriented to bed controls, call light, TV, heat, and A/C controls.
--- NOTE | 2020-07-19 15:05 | NUR ---
AMNIO SWAB POSITIVE. SVE BY PRATEEK WHITE RN. 5.5-6 CM/ 50%/-2 BALLOTABLE. FOREBAG NOTED. APPEARS VERTEX.
[2020-07-19] MEDS ORDERED: D5 LR IV SOLUTION 1,000 ML IV ONE (15:14)
--- NOTE | 2020-07-19 15:15 | NUR ---
DR. BRANDON NOTIFIED OF PT'S ARRIVAL, COMPLAINT, + AMNIO SWAB AND CERVICAL EXAM. WILL SEE IF DR. CORDERO IS AVAILABLE R/T BEING HER PT.
[2020-07-19] MEDS ORDERED: D5 LR IV SOLUTION 1,000 ML IV SCH (15:17)
[2020-07-19] MEDS ORDERED: LACTATED RINGERS 1,000 ML IV SCH (15:30)
[2020-07-19 15:39] LABS: BASOPHILS % (AUTO) 0 % (0-10); EOSINOPHILS % (AUTO) 0 % (0-10); HEMATOCRIT 30 % (35-52); HEMOGLOBIN 9.7 g/dL (11.5-16.0); LYMPHOCYTES # (AUTO) 1.7 10^3/uL (1.0-4.0); LYMPHOCYTES % (AUTO) 19 % (12-44); MEAN CORPUSCULAR HEMOGLOBIN 28 pg (25-34); MEAN CORPUSCULAR HGB CONC 32 g/dL (32-36); MEAN CORPUSCULAR VOLUME 86 fL (80-99); MEAN PLATELET VOLUME 11.1 fL (9.0-12.2); MONOCYTES # (AUTO) 0.6 10^3/uL (0.0-1.0); MONOCYTES % (AUTO) 6 % (0-12); NEUTROPHILS # (AUTO) 6.5 10^3/uL (1.8-7.8); NEUTROPHILS % (AUTO) 72 % (42-75); PLATELET COUNT 189 10^3/uL (130-400)
--- NOTE | 2020-07-19 15:40 | NUR ---
DR. CORDERO CALLED. WILL ASSUME CARE OF HER PT. UPDATE GIVEN.
[2020-07-19] MEDS ORDERED: LACTATED RINGERS 1,000 ML IV ONE ×2 (15:43)
[2020-07-19] MEDS ORDERED: ONDANSETRON 4 MG/2 ML (SDV) Z0FRAN IV PRN (15:45)
[2020-07-19] MEDS ORDERED: EPIDURAL (fentaNYL 2 MCG/ML BUPIVA 0.125%)100 ML BAG EPI PRN (15:45)
[2020-07-19] MEDS ORDERED: NALOXONE 0.4 MG/ML 1 ML (NARCAN) VIAL IV PRN (15:45)
[2020-07-19] MEDS ORDERED: fentaNYL INJECTION 100 MCG/2 ML AMP INJ ONE (15:45)
[2020-07-19] MEDS ORDERED: LIDOCAINE PF 2% 5 ML (XYLOCAINE) VIAL ONE (15:49)
[2020-07-19] MEDS ORDERED: BUPIVACAINE 0.25% 30 ML (SENSORCAINE) VIAL ONE (15:49)
[2020-07-19] MEDS ORDERED: fentaNYL INJECTION 100 MCG/2 ML AMP ONE (15:50)
--- NOTE | 2020-07-19 17:02 | NUR ---
DR. CORDERO CALLED TO CHECK ON PT STATUS. UPDATE GIVEN REGARDING 7 CM/60%/-2 AND CONTRACTION PATTERN AND VARIABLES. RECHECK PT IN 1 HOUR.
[2020-07-19] MEDS ORDERED: MINERAL OIL CONCENTRATE 99.9% 15 ML UDC TOP PRN (18:00)
[2020-07-19] MEDS ORDERED: OXYTOCIN PRE-MIX DRIP 500 ML IV SCH (18:23)
--- NOTE | 2020-07-19 19:52 | Labor Progress Note ---
ANANYA AQUINO MD 07/19/20 195: Labor Progress Note Labor Progress Note Time Seen by Provider: 19:50 Subjective: Pt denies complaints. Starting to feel contractions a little more, but epidural is working well. Objective: (Can we insert 24 hour vitals here?) Cervical exam: 8+/100%/-1 Consistency: soft Position: anterior Presentation: cephalic heart tones: 135 beats per minute, moderate variability, reactive, no decels Tocometer: 4 ctx/10 minutes Assessment/Plan: Marycarmen Osullivan is a (29 /Para / ,Gestational Age (wks)39 here for contractions/labor. CEFM/TOCO Continue pitocin Anesthesia: epidural Anticipate vaginal delivery next check in 30-60 minutes d/w Dr. César Aquino MD [facility] Resident Physician, PGY-2 Vitals - Labs Vital Signs - I&O Vital Signs Date Time Temp Pulse Resp B/P (MAP) Pulse Ox O2 Delivery O2 Flow Rate FiO2 07/19/20 17:35 71 18 121/73 (89) 100 07/19/20 17:20 74 18 117/67 (84) 100 07/19/20 17:10 36.7 101 18 99 Room Air 07/19/20 17:02 78 18 116/66 (83) 100 07/19/20 16:56 80 18 118/55 (76) 100 07/19/20 16:51 75 18 120/76 (91) 99 07/19/20 16:48 80 18 121/65 (83) 99 07/19/20 16:45 83 18 134/72 (92) 99 07/19/20 16:41 80 18 125/73 (90) 100 07/19/20 16:35 84 18 127/78 (94) 100 07/19/20 16:32 80 18 125/72 (89) 100 07/19/20 16:30 81 18 127/71 (89) 100 07/19/20 16:26 80 18 119/65 (83) 98 07/19/20 16:23 37.0 80 18 121/64 (83) 98 07/19/20 16:20 83 18 125/69 (87) 99 07/19/20 16:17 82 18 129/63 (85) 98 07/19/20 16:14 93 18 133/63 (86) 99 07/19/20 16:10 86 18 125/79 (94) 99 07/19/20 16:08 100 18 120/74 (89) 99 07/19/20 15:55 82 18 128/79 (95) 07/19/20 15:40 88 18 127/72 (90) 07/19/20 14:52 36.7 107 18 129/72 (91) 99 Labs Laboratory Tests 07/19/20 15:20: White Blood Count 9.0, Red Blood Count 3.47L, Hemoglobin 9.7L, Hematocrit 30L, Mean Corpuscular Volume 86, Mean Corpuscular Hemoglobin 28, Mean Corpuscular Hemoglobin Concent 32, Red Cell Distribution Width 14.9H, Platelet Count 189, Me an Platelet Volume 11.1, Immature Granulocyte % (Auto) 2, Neutrophils (%) (Auto) 72, Lymphocytes (%) (Auto) 19, Monocytes (%) (Auto) 6, Eosinophils (%) (Auto) 0, Basophils (%) (Auto) 0, Neutrophils # (Auto) 6.5, Lymphocytes # (Auto) 1.7, Monocytes # (Auto) 0.6, Eosinophils # (Auto) 0.0, Basophils # (Auto) 0.0, Immature Granulocyte # (Auto) 0.2H LUIS DANIEL CORDERO DO 07/19/20 2233: Labor Progress Note Labor Progress Note Time Seen by Provider: 20:00 I have seen and examined the patient and agree with assessment. ANANYA AQUINO MD Jul 19, 2020 19:52 LUIS DANIEL CORDERO DO Jul 19, 2020 22:33
[2020-07-19] MEDS ORDERED: MISOPROSTOL 200 MCG (CYTOTEC) TABLET ONE ×2 (21:56)
[2020-07-19] MEDS ORDERED: LIDOCAINE/EPI 2% 1:200,00 (XYLOCAINE) 10 ML VIAL ONE ×2 (22:00→22:07)
[2020-07-19] MEDS ORDERED: CATHETER FLUSH 10 ML SYR IV SCH (22:00)
[2020-07-19] MEDS ORDERED: MISOPROSTOL 200 MCG (CYTOTEC) TABLET PR ONE ×3 (22:13→22:30)
[2020-07-19] MEDS ORDERED: LIDOCAINE/EPI 2% 1:200,00 (XYLOCAINE) 10 ML VIAL IJ ONE (22:18)
[2020-07-19] MEDS ORDERED: TETANUS,DIPTH,PERTUSS P/F (BOOSTRIX) 0.5 ML VIAL IM ONE (22:30)
[2020-07-19] MEDS ORDERED: DIBUCAINE (NUPERCAINAL) 1% OINT 30 GM TOP PRN (22:30)
[2020-07-19] MEDS ORDERED: BENZOCAINE/MENTHOL (DERMOPLAST) 60 ML CAN TP PRN (22:30)
[2020-07-19] MEDS ORDERED: WITCH HAZEL(TUCKS) 40 EA JAR TOP PRN (22:30)
[2020-07-19] MEDS ORDERED: MEASLES,MUMPS,RUBELLA 1 EA INJ SQ ONE (22:30)
--- NOTE | 2020-07-19 22:38 | OB Labor & Delivery Record ---
ANANYA AQUINO MD 07/19/20 2238: Vag Delivery Note Vag Delivery Note Date of Delivery: 07/19/20 Preoperative Diagnosis: Marycarmen Osullivan is a (29 /Para 2 /1 , at Gestational Age (wks)39 who presented with loss of fluid and contractions Postoperative Diagnosis: Same Surgeon: Dr. Alyson Cordero Skimmer Scoop Operator: ANANYA AQUINO Anesthesia: epidural Delivery Type: spontaneous vaginal delivery Findings: Viable male infant, apgars 8/9, weight 4310 Lacerations: second degree perineal w/ partial capsulotomy Intact placenta with 3 vessel cord. No nuchal cord, body cord or shoulder dystocia Cytotec 800 mcg placed for hemorrhage prophylaxis Estimated Blood Loss: 500 ml Complications: laceration as above, PPH s/p Cytotec Condition: Stable Description of Procedure: The patient is a 29 year old female who presented with loss of fluid and contractions. She was admitted and informed consent was obtained. Her labor course was augmented with Pitocin and was otherwise unremarkable. She progressed to complete dilatation and began to push. She was then set up for delivery. The infant's head was delivered atraumatically in the GABBY position. The shoulders and remainder of the infant's body were then delivered without difficulty. Upon delivery, the nares were bulb suctioned. The cord was doubly clamped and cut and the was handed off to the pediatric staff. An intact placenta with 3-vessel cord delivered via Steven. Vigorous fundal massage was performed and the fundus was found to be firm. IV oxytocin and rectal Cytotec was given. Examination of the vagina and perineum revealed a 2nd degree laceration with partial capsulotomy, which was repaired in the usual fashion with 3-0 vicryl suture. Following the repair, sponge, instrument and needle counts were correct. Mom and baby were both in stable condition in the labor suite. Dr. Cordero was present for the entire procedure Jose Antonio Aquino MD [facility] Resident Physician, PGY-2 Vitals - Labs Vital Signs - I&O Vital Signs Date Time Temp Pulse Resp B/P (MAP) Pulse Ox O2 Delivery O2 Flow Rate FiO2 07/19/20 22:19 36.78601 07/19/20 18:50 73 18 121/70 (87) 100 Room Air 07/19/20 18:35 72 18 116/73 (87) 100 Room Air 07/19/20 18:20 75 18 124/73 (90) 100 Room Air 07/19/20 18:05 75 18 131/80 (97) 100 Room Air 07/19/20 17:50 36.5 69 18 127/77 (94) 100 Room Air 07/19/20 17:35 71 18 121/73 (89) 100 07/19/20 17:20 74 18 117/67 (84) 100 07/19/20 17:10 36.7 101 18 99 Room Air 07/19/20 17:02 78 18 116/66 (83) 100 07/19/20 16:56 80 18 118/55 (76) 100 07/19/20 16:51 75 18 120/76 (91) 99 07/19/20 16:48 80 18 121/65 (83) 99 07/19/20 16:45 83 18 134/72 (92) 99 07/19/20 16:41 80 18 125/73 (90) 100 07/19/20 16:35 84 18 127/78 (94) 100 07/19/20 16:32 80 18 125/72 (89) 100 07/19/20 16:30 81 18 127/71 (89) 100 07/19/20 16:26 80 18 119/65 (83) 98 07/19/20 16:23 37.0 80 18 121/64 (83) 98 07/19/20 16:20 83 18 125/69 (87) 99 07/19/20 16:17 82 18 129/63 (85) 98 07/19/20 16:14 93 18 133/63 (86) 99 07/19/20 16:10 86 18 125/79 (94) 99 07/19/20 16:08 100 18 120/74 (89) 99 07/19/20 15:55 82 18 128/79 (95) 07/19/20 15:40 88 18 127/72 (90) 07/19/20 14:52 36.7 107 18 129/72 (91) 99 Labs Laboratory Tests 07/19/20 15:20: White Blood Count 9.0, Red Blood Count 3.47L, Hemoglobin 9.7L, Hematocrit 30L, Mean Corpuscular Volume 86, Mean Corpuscular Hemoglobin 28, Mean Corpuscular Hemoglobin Concent 32, Red Cell Distribution Width 14.9H, Platelet Count 189, Mean Platelet Volume 11.1, Immature Granulocyte % (Auto) 2, Neutrophils (%) (Auto) 72, Lymphocytes (%) (Auto) 19, Monocytes (%) (Auto) 6, Eosinophils (%) (Auto) 0, Basophils (%) (Auto) 0, Neutrophils # (Auto) 6.5, Lymphocytes # (Auto) 1.7, Monocytes # (Auto) 0.6, Eosinophils # (Auto) 0.0, Basophils # (Auto) 0.0, Immature Granulocyte # (Auto) 0.2H ALYSON CORDERO DO 07/20/20 1139: Vag Delivery Note Vag Delivery Note There was a mild shoulder dystocia. This was resolved in less than 30 seconds with Rosa and delivery of the anterior shoulder. Also, there was a 2nd degree laceration with partial capsulotomy that I repaired in standard fashion. There was no rectal mucosa tear. Her IV came out with delivery, so IV pitocin was not infused. She was given 800 mcg per rectum misoprostol and did not require additional medications. Shoulder Dystocia Note Shoulder Dystocia HOB in lowered position: Yes Positional Maneuvers Rosa See RN note for times. Rotational Maneuvers Bacon screw (rotation of the baby to deliver the anterior shoulder) ANANYA AQUINO MD Jul 19, 2020 22:38 ALYSON CORDERO DO Jul 20, 2020 11:39
--- NOTE | 2020-07-19 22:40 | NUR ---
PT SITTING UP IN BED. MINIMAL ASSIST WITH GETTING LATCHED TO BREASTFEED. GOOD LATCH NOTED.
[2020-07-19] MEDS: IBUPROFEN 600 MG (MOTRIN) TAB PO SCH (23:06)
--- NOTE | 2020-07-19 23:35 | NUR ---
INFANT AGAIN AT THIS TIME.
[2020-07-20 00:15] VITALS: BP 115/68
--- NOTE | 2020-07-20 00:30 | NUR ---
EPIDURAL CATH REMOVED AT THIS TIME WITH TIP INTACT. PT TRANSFERRED TO W/C WITH STANDBY ASSIST. TO BATHROOM. VOIDED AND PERICARE COMPLETED. PT TRANSFERRED TO POST ROOM AT THIS TIME, IN STABLE CONDITION.
[2020-07-20 01:30] VITALS: BP 120/72
[2020-07-20] MEDS ORDERED: DOCUSATE SODIUM 100 MG (COLACE) CAP PO ONE (01:30)
--- NOTE | 2020-07-20 01:30 | NUR ---
VSS. ASSISTED WITH GETTING TO LATCH. OXYCODONE AND COLACE ADMINISTERED PER REQUEST.
[2020-07-20] MEDS: DOCUSATE SODIUM 100 MG (COLACE) CAP PO SCH ×3 (01:35→20:05)
--- NOTE | 2020-07-20 05:40 | NUR ---
LAB HAS FINISHED DRAWING AM LABS. PT ASSISTED UP TO BATHROOM AND VOIDED WITHOUT DIFFICULTY. PERICARE COMPLETED. ABIODUN SHUKLA.
[2020-07-20 05:51] LABS: BASOPHILS % (AUTO) 0 % (0-10); EOSINOPHILS % (AUTO) 0 % (0-10); HEMATOCRIT 24 % (35-52); HEMOGLOBIN 7.7 g/dL (11.5-16.0); LYMPHOCYTES # (AUTO) 2.1 10^3/uL (1.0-4.0); LYMPHOCYTES % (AUTO) 16 % (12-44); MEAN CORPUSCULAR HEMOGLOBIN 28 pg (25-34); MEAN CORPUSCULAR HGB CONC 32 g/dL (32-36); MEAN CORPUSCULAR VOLUME 87 fL (80-99); MEAN PLATELET VOLUME 10.9 fL (9.0-12.2); MONOCYTES # (AUTO) 0.8 10^3/uL (0.0-1.0); MONOCYTES % (AUTO) 6 % (0-12); NEUTROPHILS # (AUTO) 10.1 10^3/uL (1.8-7.8); NEUTROPHILS % (AUTO) 77 % (42-75); PLATELET COUNT 158 10^3/uL (130-400); WHITE BLOOD COUNT 13.1 10^3/uL (4.3-11.0)
[2020-07-20] MEDS ORDERED: ACETAMINOPHEN 500 MG TAB (TYLENOL) PO SCH (06:00)
[2020-07-20] MEDS ORDERED: CATHETER FLUSH 10 ML SYR IV SCH (06:00)
--- NOTE | 2020-07-20 06:27 | Postpartum Progress Note ---
Note Note Day # 1 Subjective: Patient is without complaints. Ambulating, voiding. Tolerating a regular diet without nausea or vomiting. Normal lochia. Pain is well controlled with oral pain medications. Breast feeding. Objective: Physical Exam: General - Alert and oriented, no apparent distress Pulm - non-labored respiration Abdomen - Soft, appropriately tender to palpation, non-distended, fundus firm at umbilicus Extremities - no edema, negative Gloria's bilaterally Neuro - Grossly intact Assessment: 29 y/o G2 now P2 post- day # 1, status post vaginal delivery c/b 2nd degree perineal laceration w/ capsulotomy. Recovering well, hemodynamically stable -Acute blood loss anemia; Hgb 9.7 -> 7.7 Plan: Routine care. Encourage breast feeding. Encourage ambulation. IV Iron today and will start Ferrous sulfate supplementation upon discharge repeat CBC tomorrow morning Plan for discharge on PPD#2 d/w Dr. César Aquino MD [facility] Resident Physician, PGY-2 Vitals - Labs Vital Signs - I&O Vital Signs Date Time Temp Pulse Resp B/P (MAP) Pulse Ox O2 Delivery O2 Flow Rate FiO2 07/20/20 01:30 36.6 78 18 120/72 (88) 99 Room Air 07/20/20 00:15 36.7 91 18 115/68 (84) Room Air 07/19/20 22:35 100 18 135/88 (104) Room Air 07/19/20 22:25 109 18 124/77 (93) Room Air 07/19/20 22:19 [id number] 07/19/20 21:54 125 18 139/71 (93) Room Air 07/19/20 21:35 125 18 139/71 (93) Room Air 07/19/20 21:20 36.5 89 18 135/97 (110) Room Air 07/19/20 21:05 104 18 142/72 (95) Room Air 07/19/20 20:50 87 18 139/65 (89) 99 Room Air 07/19/20 20:35 89 18 135/100 (112) 99 Room Air 07/19/20 20:20 36.8 98 18 127/77 (94) 98 Room Air 07/19/20 20:05 81 18 126/73 (90) 99 Room Air 07/19/20 19:50 80 18 126/72 (90) 100 Room Air 07/19/20 19:35 36.7 76 18 119/71 (87) 99 Room Air 07/19/20 19:20 74 18 115/70 (85) 99 Room Air 07/19/20 18:50 73 18 121/70 (87) 100 Room Air 07/19/20 18:35 72 18 116/73 (87) 100 Room Air 07/19/20 18:20 75 18 124/73 (90) 100 Room Air 07/19/20 18:05 75 18 131/80 (97) 100 Room Air 07/19/20 17:50 36.5 69 18 127/77 (94) 100 Room Air 07/19/20 17:35 71 18 121/73 (89) 100 07/19/20 17:20 74 18 117/67 (84) 100 07/19/20 17:10 36.7 101 18 99 Room Air 07/19/20 17:02 78 18 116/66 (83) 100 07/19/20 16:56 80 18 118/55 (76) 100 07/19/20 16:51 75 18 120/76 (91) 99 07/19/20 16:48 80 18 121/65 (83) 99 07/19/20 16:45 83 18 134/72 (92) 99 07/19/20 16:41 80 18 125/73 (90) 100 07/19/20 16:35 84 18 127/78 (94) 100 07/19/20 16:32 80 18 125/72 (89) 100 07/19/20 16:30 81 18 127/71 (89) 100 07/19/20 16:26 80 18 119/65 (83) 98 07/19/20 16:23 37.0 80 18 121/64 (83) 98 07/19/20 16:20 83 18 125/69 (87) 99 07/19/20 16:17 82 18 129/63 (85) 98 07/19/20 16:14 93 18 133/63 (86) 99 07/19/20 16:10 86 18 125/79 (94) 99 07/19/20 16:08 100 18 120/74 (89) 99 07/19/20 15:55 82 18 128/79 (95) 07/19/20 15:40 88 18 127/72 (90) 07/19/20 14:52 36.7 107 18 129/72 (91) 99 I & O 07/20/20 07:00 Intake Total 1870 ml Balance 1870 ml Labs Laboratory Tests 07/19/20 15:20: White Blood Count 9.0, Red Blood Count 3.47L, Hemoglobin 9.7L, Hematocrit 30L, Mean Corpuscular Volume 86, Mean Corpuscular Hemoglobin 28, Mean Corpuscular He moglobin Concent 32, Red Cell Distribution Width 14.9H, Platelet Count 189, Mean Platelet Volume 11.1, Immature Granulocyte % (Auto) 2, Neutrophils (%) (Auto) 72, Lymphocytes (%) (Auto) 19, Monocytes (%) (Auto) 6, Eosinophils (%) (Auto) 0, Basophils (%) (Auto) 0, Neutrophils # (Auto) 6.5, Lymphocytes # (Auto) 1.7, Monocytes # (Auto) 0.6, Eosinophils # (Auto) 0.0, Basophils # (Auto) 0.0, Immature Granulocyte # (Auto) 0.2H 07/20/20 05:41: White Blood Count 13.1H, Red Blood Count 2.73L, Hemoglobin 7.7#L, Hematocrit 24L , Mean Corpuscular Volume 87, Mean Corpuscular Hemoglobin 28, Mean Corpuscular Hemoglobin Concent 32, Red Cell Distribution Width 15.4H, Platelet Count 158, Mean Platelet Volume 10.9, Immature Granulocyte % (Auto) 1, Neutrophils (%) (Auto) 77H, Lymphocytes (%) (Auto) 16, Monocytes (%) (Auto) 6, Eosinophils (%) (Auto) 0, Basophils (%) (Auto) 0, Neutrophils # (Auto) 10.1H, Lymphocytes # (Auto) 2.1, Monocytes # (Auto) 0.8, Eosinophils # (Auto) 0.0, Basophils # (Auto) 0.0, Immature Granulocyte # (Auto) 0.1 ANANYA AQUINO MD Jul 20, 2020 06:27
[2020-07-20] MEDS ORDERED: IRON SUCROSE 200 MG/10 ML (VENOFER) VIAL IV ONE ×2 (07:30→11:30)
[2020-07-20 07:50] VITALS: BP 116/70
[2020-07-20] MEDS: FERROUS SULF 325 MG (IRON) TAB PO SCH (08:56)
[2020-07-20] MEDS: IBUPROFEN 600 MG (MOTRIN) TAB PO SCH ×3 (08:56→20:05)
[2020-07-20] MEDS: PRENATAL VITAMIN 1 EA TAB PO SCH (08:56)
--- NOTE | 2020-07-20 10:20 | NUR ---
REPORT RECEIVED BY DAR HADDAD RN AT THIS TIME
--- NOTE | 2020-07-20 11:21 | Anesthesia-Regional Post-Op ---
Regional Patient Condition Mental Status: Alert, Oriented x3 Circulation: Same as Pre-Op Headache: Absent Sensation: Full Recovery Motor Block: Absent Post Op Complications Complications None Follow Up Care/Instructions Patient Instructions None needed. Anesthesia/Patient Condition Patient is doing well, no complaints, stable vital signs, no apparent adverse anesthesia problems. No complications reported per nursing. ANISA SALINAS CRNA Jul 20, 2020 11:21
[2020-07-20 12:31] VITALS: BP 107/68
--- NOTE | 2020-07-20 14:20 | NUR ---
PT ASSISTED UP TO BATHROOM BY RN WITH EASE. PERICARE BY PT. RETURNS BACK TO BED WITHOUT DIFFICULTY. CALL LIGHT WITHIN REACH.
[2020-07-20 16:22] VITALS: BP 117/57
[2020-07-20 19:54] VITALS: BP 108/59
[2020-07-21 02:33] VITALS: BP 104/66
[2020-07-21] MEDS: IBUPROFEN 600 MG (MOTRIN) TAB PO SCH ×2 (02:34→08:34)
[2020-07-21 04:45] LABS: HEMOGLOBIN 7.3 g/dL (11.5-16.0); MEAN PLATELET VOLUME 10.8 fL (9.0-12.2); WHITE BLOOD COUNT 7.4 10^3/uL (4.3-11.0)
--- NOTE | 2020-07-21 07:00 | NUR ---
Report received from lexy rn.
--- NOTE | 2020-07-21 07:07 | Postpartum Progress Note ---
Note Note Day # 2 Subjective: Patient is without complaints. Ambulating, voiding. Tolerating a regular diet without nausea or vomiting. Normal lochia. Pain is well controlled with oral pain medications. Breast feeding. Objective: Physical Exam: General - Alert and oriented, no apparent distress Abdomen - Soft, appropriately tender to palpation, non-distended, fundus firm at umbilicus Extremities - no edema, negative Gloria's bilaterally Assessment: 29 y/o G2 now P2 post- day # 2, status post vaginal delivery. Recovering well, hemodynamically stable - hgb 9.7 -> 7.7 -> 7.3, s/p IV iron x1 dose Plan: Routine care. Encourage breast feeding. Encourage ambulation. Ferrous sulfate w/ vitamin C supplementation. Plan for discharge PPD#2 d/w Dr. César Aquino MD [facility], Resident Physician, PGY-2 Vitals - Labs Vital Signs - I&O Vital Signs Date Time Temp Pulse Resp B/P (MAP) Pulse Ox O2 Delivery O2 Flow Rate FiO2 07/21/20 02:33 36.1 88 16 104/66 (79) 100 Room Air 07/20/20 19:54 36.9 89 18 108/59 (75) 98 Room Air 07/20/20 16:22 36.4 93 16 117/57 (77) 98 Room Air 07/20/20 12:31 36.3 76 16 107/68 (81) 98 Room Air 07/20/20 07:50 36.3 81 20 116/70 (85) Room Air I & O 07/21/20 07:00 Intake Total 10 ml Balance 10 ml Labs Laboratory Tests 07/21/20 04:35: White Blood Count 7.4, Red Blood Count 2.59L, Hemoglobin 7.3L, Hematocrit 23L, Mean Corpuscular Volume 88, Mean Corpuscular Hemoglobin 28, Mean Corpuscular Hemoglobin Concent 32, Red Cell Distribution Width 15.7H, Platelet Count 147, Mean Platelet Volume 10.8 NAANYA AQUINO MD Jul 21, 2020 07:07
[2020-07-21] MEDS ORDERED: DCS100C PO (07:56)
[2020-07-21] MEDS ORDERED: OXC5T PO (07:56)
[2020-07-21] MEDS ORDERED: IBUP-844 PO (07:56)
[2020-07-21] MEDS ORDERED: POLY17PO6 PO (07:56)
[2020-07-21] MEDS ORDERED: FERR325T18 PO (07:56)
--- NOTE | 2020-07-21 08:30 | NUR ---
Initial assessment completed, vss, see interventions for detailed assessments, plan of care reviewed with pt/so, no questions noted, +bm noted this am. Pt denies any c/o or concerns will monitor closely, up to shower.
[2020-07-21] MEDS: PRENATAL VITAMIN 1 EA TAB PO SCH (08:34)
[2020-07-21] MEDS: FERROUS SULF 325 MG (IRON) TAB PO SCH (08:34)
[2020-07-21] MEDS: DOCUSATE SODIUM 100 MG (COLACE) CAP PO SCH (08:35)
[2020-07-21 08:44] VITALS: BP 131/76
--- NOTE | 2020-07-21 10:45 | NUR ---
D/C instructions explained, signed, no questions noted, pt verbalizes understanding of continued and follow up care.
--- NOTE | 2020-07-21 12:02 | NUR ---
MARTY WRAY demonstrates understanding of discharge instructions and accurately returns instructions upon questioning. Copy of Post-Discharge Instructions given to pt. MARTY WRAY is/is not able to manage continuing needs after discharge. Patients belongings returned to . Patient discharged from 3309-1 on 07/21/20 at 1202. MARTY WRAY left floor via , accompanied by .
== END 2020-07-21 12:02 | disposition home or self-care (01) | DRG 806 ==
LOC: LDRP 14:42 → WSo 14:42 → LDRP 15:12 → WSo 15:12 → LDRP 07-20 04:54
PROVIDERS: ADMIT Obstetrics & Gynecology; ATTEND Obstetrics & Gynecology
PROC: 10E0XZZ Delivery of Products of Conception, External Approach (ICD-10-PCS; principal; 2020-07-19)
PROC: 0KQM0ZZ Repair Perineum Muscle, Open Approach (ICD-10-PCS; 2020-07-19)
DX: O70.1 Second degree perineal laceration during delivery (principal); D62 Acute posthemorrhagic anemia; Z37.0 Single live birth; Z3A.39 39 weeks gestation of pregnancy; O90.81 Anemia of the puerperium
CPT/HCPCS: 36415; 85025; 85027; 86850; 86900; 86901; 99212